=== PATIENT | female | born 1955 | race Caucasian/White ===

== ENCOUNTER 2019-08-17 22:46 | Emergency (ER) | payer OTHER ==
[2019-08-17] MEDS ORDERED: SODIUM CHLORIDE 1,000 ML IV SCH (23:00)
[2019-08-17 23:15] VITALS: TEMP 97.3; BMI 39.0
[2019-08-17 23:19] LABS: BASO % 0.5 % (0-2.0); EOS % 2.2 % (0-4.5); HEMATOCRIT 40.1 % (32.4-45.2); HEMOGLOBIN 13.3 GM/dL (10.7-15.3); LYMPH % 18.9 % (8-40); MCHC 33.1 g/dl (32.0-36.0); MEAN CELL VOLUME 75.5 fl (80-96); MONO % 6.2 % (3.8-10.2); NEUT % 72.2 % (42.8-82.8); PLATELET COUNT 356 K/MM3 (134-434); RBC 5.31 M/mm3 (3.60-5.2); RDW 15.6 % (11.6-15.6)
[2019-08-17 23:26] LABS: INR 0.95 (0.83-1.09); PROTHROMBIN TIME (PATIENT) 11.2 SEC (9.7-13.0)
[2019-08-17 23:29] LABS: ACTIVATED PTT 31.9 SECONDS (25.2-36.5)
[2019-08-17 23:47] LABS: ALBUMIN 3.8 g/dl (3.4-5.0); ALK PHOS 83 U/L (45-117); ANION GAP 8 MMOL/L (8-16); BILIRUBIN,TOTAL 0.3 mg/dL (0.2-1); BLOOD UREA NITROGEN 12.6 mg/dL (7-18); CALCIUM 9.2 mg/dL (8.5-10.1); CHLORIDE 107 mmol/L (98-107); CO2 27 mmol/L (21-32); CREATININE 0.8 mg/dL (0.55-1.3); GLUCOSE,RANDOM 136 mg/dL (74-106); POTASSIUM 3.7 mmol/L (3.5-5.1); SGOT/AST 17 U/L (15-37); SGPT/ALT 19 U/L (13-61); SODIUM 142 mmol/L (136-145); TOT PROT 7.9 g/dl (6.4-8.2)
[2019-08-17] MEDS ORDERED: ALTEPLASE 100 MG VIAL IVPB ONE (23:52)
[2019-08-17] MEDS ORDERED: ALTEPLASE BOLUS IVPUSH ONE (23:52)
[2019-08-17] MEDS ORDERED: ALTEPLASE 100MG 100 MG ONE (23:54)
[2019-08-17 23:58] LABS: CHOLESTEROL 167 mg/dL (50-200); HDL CHOLESTEROL 62 mg/dL (40-60); LDL CHOLESTEROL (ONLY SJRH) 86 mg/dL (5-100); TRIGLYCERIDES 138 mg/dL (0-150)
--- NOTE | 2019-08-18 | PDOC ---
History of Present Illness - General Chief Complaint: CVA/TIA Stated Complaint: FALL tPA Exclusion Checklist 0-3hr - Time Elapsed Date last known well: 08/17/19 Time last known well: 22:00 Elaspsed time: 2 Day(s) and 14 Hour(s) and 50 Minutes - Thrombolytic Therapy Candidate Is the patient eligible for Thrombolytic Therapy?: Yes - Exclusion Criteria 0-3hr SBP greater than 185 or DBP greater than 110mmHg despite tx: No Recent IC/spinal surgery,head trauma or stroke w/in last 3mo: No Hx of previous IC hemorrhage, IC neoplasm, AVM or aneurysm: No Active internal bleeding: No Blding diathesis(low plt ct, inc PTT,INR>1.7 or use of NOAC): No Symptoms suggest subarachnoid hemorrhage: No CT demonstrates multilobar infarct(>1/3 cerebral hemiphere): No Arterial puncture at noncompressible site in previous 7 days: No Blood glucose concentration less than 50mg/dL (2.7mmol/L): No NIH Stroke Scale - Last Known Well Date/Time & Onset Date Last Known Well: 08/18/19 Time Last Known Well: 22:00 - Initial Evaluation Level of consciousness: Alert Ask patient the month and their age: Both incorrect Ask patient to open & close eyes; make fist and let go: Obeys both correctly Best gaze (horizontal eye movement): Normal Visual field testing: No visual field loss Facial paresis (Show teeth/raise eyebrows/close eyes tight): Complete paralysis of one or both sides (Upper and lower face) Motor Function: Left Arm: Normal Motor Function: Right Arm: Some effort against gravity Motor Function: Left Leg: Normal (extends leg 30 degrees for 5 seconds without drift) Motor Function: Right Leg: Some effort against gravity Limb Ataxia: Untestable (Joint fused or limb amputated), explain: Sensory(Use pinprick test arms,legs,trunk,face/side to side): Normal Best language (Describe picture, name items, read sentences): Severe aphasia Dysarthria (read several words): Near unintelligible or unable to speak Extinction and Inattention: Inattention or extinction bilaterally to one of the sensory modalities - Total Score NIH Stroke Scale Score: 14 Past History - Past Medical History Allergies/Adverse Reactions: Allergies Allergy/AdvReac Type Severity Reaction Status Date / Time Penicillins Allergy Verified 08/17/19 23:15 Home Medications: Ambulatory Orders Amlodipine Besylate 5 mg PO DAILY 01/02/15 Cholecalciferol (Vitamin D3) [Vitamin D3] 1,000 unit PO DAILY 01/02/15 Hydrocodone/Acetaminophen [[place] 5-325 Tablet] 1 - 2 tab PO Q6H PRN #60 tablet 01/04/15 Ibuprofen [Motrin -] 800 mg PO Q8H PRN #60 tablet 01/04/15 Anemia: No Asthma: No Cancer: No Cardiac Disorders: No CVA: No COPD: No CHF: No Dementia: No Diabetes: No GI Disorders: No Disorders: No HTN: Yes Hypercholesterolemia: No Liver Disease: No Seizures: No Thyroid Disease: No - Surgical History Abdominal Surgery: No Appendectomy: No Cardiac Surgery: No Cholecystectomy: No Lung Surgery: No Neurologic Surgery: No Orthopedic Surgery: No - Psycho Social/Smoking Cessation Hx Smoking History: Unknown if ever smoked Have you smoked in the past 12 months: No Hx Alcohol Use: No Drug/Substance Use Hx: No Substance Use Type: None Hx Substance Use Treatment: No *Physical Exam - Vital Signs Last Vital Signs Temp Pulse Resp BP Pulse Ox 97.3 F L 92 H 20 171/69 H 97 08/17/19 23:12 08/17/19 23:12 08/17/19 23:12 08/17/19 23:12 08/17/19 23:12 ED Treatment Course - LABORATORY CBC & Chemistry Diagram: 08/17/19 23:10 08/17/19 23:10 - ADDITIONAL ORDERS Additional order review: Laboratory Results 08/17/19 23:10 PT with INR 11.20 INR 0.95 PTT (Actin FS) 31.9 08/17/19 23:10 RBC 5.31 H MCV 75.5 L MCHC 33.1 RDW 15.6 MPV 8.0 Neutrophils % 72.2 Lymphocytes % 18.9 Monocytes % 6.2 Eosinophils % 2.2 Basophils % 0.5 Medical Decision Making - Medical Decision Making 08/18/19 00:07 HPI: 64yo F no PMH BIBA from home R-sided facial droop, R-sided weakness, R sara- extinction, and inability to talk, LKN 2200 per son. Pt appears able to understand speech because follows commands. Pt appears like trying to form words and talk but is unable to do so. Remaining hx per son. Pt was in [facility] prior, no COVID sx, went to bathroom and few minutes later was found on floor in this state by family. ROS: unable to obtain 2/2 dysarthria PE: Gen: Alert, NAD HEENT: PERRL, EOMI, MMM, NCAT. No conjunctival pallor. Sclera are non-icteric. Oropharynx is clear. CV: Regular rate and rhythm. No murmurs, rubs, or gallops. PULM: No resp distress. CTAB, no wheezes, rales, or rhonchi. ABD: soft, NT/ND, no rebound tenderness or guarding, no CVA tenderness. BACK: No TTP of c/t/l-spine. No step-offs or deformities. MSK: No bony deformities. 2+ pulses in all extremities. NEURO: Alert, unable to assess orientation 2/2 dysarthria. PERRL. No abnormal nystagmus. R-sided facial droop. 3/5 strength in RUE and RLE, 5/5 strength in LUE/LLE. With LUE, no dysmetria. When asked to perform dysmetria with RUE, pt uses L hand to grab R hand and pick it up to touch the finger to my finger. Sensation to light touch intact in all extremities. Severe dysarthria present. Possible R-sided sara-extinction; pt's head turned to face left. Pt repeatedly grabs right arm with left hand and seems confused and pulls it to left side. EXTREMITIES: No cyanosis. No clubbing. No edema. No calf tenderness. PSYCH: Tearing up, appears frustrated SKIN: Warm and dry. Normal capillary refill. No rashes. No jaundice. MDM: 64yo F no PMH BIBA from home R-sided facial droop, R-sided weakness, R sara- extinction, and dysarthria, LKN 2200 per son. Hemodynamically stable, afebrile, neuro findings as above. Ddx: high concern for stroke. NIHSS 14. Also consider ICH - r/o with CTH. Also consider infection, metabolic derangement, or anemia. Pt evaluated upon arrival in EMS stretcher - R-sided weakness, facial droop, and dysarthria noted. Code porter activated CTH/CTA brain reviewed: no hemorrhage. Small branching curvilinear hyperdense foci noted on CTH correspond to on CTA noncalcified emboli within several proximal/M2 branches of L MCA. L MCA itself demonstrates no discrete intraluminal defect Labs reviewed. No concerning findings. No improvement in sx. No tPA exclusion criteria. Pt within window. Consent for tPA and transfer obtained by son. Spoke with neuro Dr Copeland - recommends tPA and tx to [facility]. Transfer accepted to [facility]. tPA initiated approx 1min prior to ACLS arrival. ACLS here. Still no improvement in sx. Pt transported with tPA. Discharge - Discharge Information Problems reviewed: Yes Clinical Impression/Diagnosis: CVA (cerebral vascular accident) Condition: Fair Disposition: TRANSFER ACUTE CARE/OTHER HOSP - Admission No - Follow up/Referral Referrals: Felix Gaines, RES [Primary Care Provider] - - Patient Discharge Instructions - Post Discharge Activity - Transfer to Acute Care Facility Receiving Facility Name: [facility]
--- NOTE | 2019-08-18 00:02 | CON.NEURO ---
Consult Consult Specialty:: katie neurology Referred by:: er Reason for Consultation:: cva - History of Present Illness History of Present Illness: 64 years old right handed female patient with sudden onset of confusion and right sided weakness started at 22 hours p.m. patient was found on the bathroom floor with right sided weakness 911 was called patient was brought into [facility] stroke protocol was initiated patient was found with dance right CVA with right arm and leg weakness and excessive expressive aphasia. According to the emergency room there was no improvement. CAT scan of the head was done which revealed no evidence of bleed. [place] angiogram of the head confirm the presence of two left MCA small thrombotic clots. patient and each stroke scale was 11 not improving. patient had no contraindication to t hrombolysis. Patient was not noted to be on a blood thinner. The decision was made to give the patient Tpa. - History Source History Provided By: Medical Record Limitations to Obtaining History: Clinical Condition - Past Medical History Cardio/Vascular: Yes: CAD, HTN - Alcohol/Substance Use Hx Alcohol Use: No - Smoking History Smoking history: Unknown if ever smoked Have you smoked in the past 12 months: No Home Medications - Allergies Allergies/Adverse Reactions: Allergies Allergy/AdvReac Type Severity Reaction Status Date / Time Penicillins Allergy Verified 08/17/19 23:15 - Home Medications Home Medications: Ambulatory Orders Amlodipine Besylate 5 mg PO DAILY 01/02/15 Cholecalciferol (Vitamin D3) [Vitamin D3] 1,000 unit PO DAILY 01/02/15 Hydrocodone/Acetaminophen [[place] 5-325 Tablet] 1 - 2 tab PO Q6H PRN #60 tablet 01/04/15 Ibuprofen [Motrin -] 800 mg PO Q8H PRN #60 tablet 01/04/15 Family Medical History Family History: Unable to Obtain Review of Systems Unable to obtain ROS, reason: ?.. Physical Exam-Neuro Vital Signs: Vital Signs Temperature 97.3 F L 08/17/19 23:12 Pulse Rate 92 H 08/17/19 23:12 Respiratory Rate 20 08/17/19 23:12 Blood Pressure 171/69 H 08/17/19 23:12 O2 Sat by Pulse Oximetry (%) 97 08/17/19 23:12 Constitutional: Yes: Well Nourished Labs: CBC, BMP 08/17/19 23:10 08/17/19 23:10 INR, PTT INR 0.95 (0.83-1.09) 08/17/19 23:10 NIH Stroke Scale - Last Known Well Date/Time & Onset Date Last Known Well: 08/17/19 Time Last Known Well: 22:00 - Initial Evaluation Level of consciousness: Alert Ask patient the month and their age: Answers one correctly Ask patient to open & close eyes; make fist and let go: Obeys one correctly Best gaze (horizontal eye movement): Partial gaze palsy Visual field testing: No visual field loss Facial paresis (Show teeth/raise eyebrows/close eyes tight): Minor paralysis (flattened nasolabial fold, asymmetry on smiling) Motor Function: Left Arm: Normal Motor Function: Right Arm: No effort against gravity Motor Function: Left Leg: Normal (extends leg 30 degrees for 5 seconds without drift) Motor Function: Right Leg: No effort against gravity Limb Ataxia: Present in one limb Sensory(Use pinprick test arms,legs,trunk,face/side to side): Mild to moderate decrease in sensation Best language (Describe picture, name items, read sentences): Severe aphasia Dysarthria (read several words): Mild to moderate slurring of words Extinction and Inattention: Inattention or extinction bilaterally to one of the sensory modalities - Total Score NIH Stroke Scale Score: 16 Imaging - Results Cat Scan: Image Reviewed Problem List - Problems (1) Stroke Code(s): I63.9 - CEREBRAL INFARCTION, UNSPECIFIED Assessment/Plan 64-year-old right handed female patient with history of hypertension with acute left MCA stroke with right hemiparesis with and I each stroke scale of 16. Patient with no contraindication absolute or relative for thrombolysis. The decision was made to give intravenous TPA 1. iv tpa 2. transfer to territary stroke unit 3. if no improvement to start mechanical thromectomy 4. tight bp control target mean abp 115 5. npo 6. iv fluids thanks Marquise Copeland MD Neurolgy
--- NOTE | 2019-08-18 00:14 | PDOC ---
Attending Attestation - Resident Resident Name: BethJuli - ED Attending Attestation I have performed the following: I have examined & evaluated the patient, The case was reviewed & discussed with the resident, I agree w/resident's findings & plan, Exceptions are as noted - HPI HPI: 08/18/19 02:44 See resident HPI - Physicial Exam PE: 08/18/19 02:44 Agree with documented exam - Medical Decision Making 08/18/19 02:44 BIBEMS with focal deficits, R facial droop, RUE/RLE weakness, dysarthria. Was [facility] 30 minutes before presentation Code ramirez activated Imaging consistent with emboli to multiple branches of the L MCA No improvement in symptoms, Neurology consulted tPA initial dose given over 1 minute, transferred to [facility] with tPA infusion on going Discharge - Discharge Information Problems reviewed: Yes Clinical Impression/Diagnosis: CVA (cerebral vascular accident) Condition: Fair Disposition: TRANSFER ACUTE CARE/OTHER HOSP - Follow up/Referral Referrals: Felix Gaines, RES [Primary Care Provider] - - Patient Discharge Instructions - Post Discharge Activity
[2019-08-18 00:24] LABS: URINE APPEARANCE CLEAR; URINE BILIRUBIN NEGATIVE (NEGATIVE); URINE COLOR YELLOW; URINE GLUCOSE (UA) NEGATIVE (NEGATIVE); URINE KETONE NEGATIVE (NEGATIVE); URINE LEUK ESTERASE NEGATIVE (NEGATIVE); URINE NITRITE NEGATIVE (NEGATIVE); URINE PROTEIN NEGATIVE (NEGATIVE); URINE UROBILINOGEN 0.2 mg/dL (0.2-1.0)
[2019-08-18 00:33] VITALS: BP 177/74; PULSE 93
--- NOTE | 2019-08-18 14:33 | EKG ---
Test Reason : Blood Pressure : / mmHG Vent. Rate : 093 BPM Atrial Rate : 093 BPM P-R Int : 140 ms QRS Dur : 068 ms QT Int : 366 ms P-R-T Axes : 056 013 046 degrees QTc Int : 455 ms POOR DATA QUALITY, INTERPRETATION MAY BE ADVERSELY AFFECTED NORMAL SINUS RHYTHM POSSIBLE LEFT ATRIAL ENLARGEMENT ANTEROSEPTAL INFARCT , AGE UNDETERMINED ABNORMAL ECG NO PREVIOUS ECGS AVAILABLE Confirmed by SHIRA GATICA MD ([id number]) on 08/18/2019 2:33:02 PM Referred By: Confirmed By:SHIRA GATICA MD
== END 2019-08-18 00:42 | disposition short-term general hospital (02) ==
LOC: JER 22:46
PROC: 3E033GC Introduction of Other Therapeutic Substance into Peripheral Vein, Percutaneous Approach (ICD-10-PCS; principal; 2019-08-17)
DX: I63.9 Cerebral infarction, unspecified (principal)
CPT/HCPCS: 36415; 70450-TC; 70496-TC; 80053; 80061; 81003; 82550; 83721; 84484; 85025; 85610; 85730; 86850; 86900; 86901; 93005; 93010; 96374; 99285-25; J2997; Q9967

== ENCOUNTER 2019-10-28 07:29 | Observation (INO) | payer OTHER ==
--- NOTE | 2019-10-28 07:56 | PDOC ---
History of Present Illness - General Chief Complaint: Lightheaded Stated Complaint: DIZZINESS/RULE OUT STROKE Time Seen by Provider: 10/28/19 07:56 History Source: Patient Exam Limitations: No Limitations - History of Present Illness Initial Comments: 10/28/19 07:57 64yF w PMHx CVA (proximal/M2 branches of L MCA) presenting w dizziness, nausea, mild L sided headache, and episode of unresponsiveness. Sudden onset dizziness (room spinning), nausea, mild L sided headache when pt stood up from chair to walk to bathroom at 7pm last night. Didn't take any meds for symptoms, only propped up legs on bed. Son also noted few second episode of unresponsiveness this morning that self resolved. Pt now at neuro baseline, AOx3, conversational, persistent R sided numbness and mild dysarthric speech. Had proximal/M2 branches of L MCA CVA on 08/17/19, given tPA, transferred to [facility], managed without surgery. Denies fever, cough, vomiting, chest/ABD pain, SOB, urinary/bowel mvmt changes, extremity weakness. Neurologist Reyes Vela Past History - Medical History Allergies/Adverse Reactions: Allergies Allergy/AdvReac Type Severity Reaction Status Date / Time Penicillins Allergy Verified 10/28/19 07:45 Home Medications: Ambulatory Orders Amlodipine Besylate 5 mg PO DAILY 01/02/15 Cholecalciferol (Vitamin D3) [Vitamin D3] 1,000 unit PO DAILY 01/02/15 Hydrocodone/Acetaminophen [[place] 5-325 Tablet] 1 - 2 tab PO Q6H PRN #60 tablet 01/04/15 Ibuprofen [Motrin -] 800 mg PO Q8H PRN #60 tablet 01/04/15 Famotidine [Pepcid -] 20 mg PO DAILY 10/28/19 Rosuvastatin [Crestor -] 5 mg PO HS 10/28/19 Anemia: No Asthma: No Cancer: No Cardiac Disorders: No CVA: Yes COPD: No CHF: No Dementia: No Diabetes: No GI Disorders: No Disorders: No HTN: Yes Hypercholesterolemia: No Liver Disease: No Seizures: No Thyroid Disease: No - Surgical History Abdominal Surgery: No Appendectomy: No Cardiac Surgery: No Cholecystectomy: No Lung Surgery: No Neurologic Surgery: No Orthopedic Surgery: No - Psycho-Social/Smoking History Smoking History: Never smoked Have you smoked in the past 12 months: No - Substance Abuse Hx (Audit-C & DAST Scrn) How often the patient has a drink containing alcohol: Never Score: In Men: 4 or > Positive; In Women: 3 or > Positive: 0 Screen Result (Pos requires Nsg. Audit-10AR): Negative Review of Systems - Review of Systems Constitutional: No: Chills, Fever HEENTM: No: Eye Pain, Recent change in vision, Nose Congestion Respiratory: No: Cough, Shortness of Breath Cardiac (ROS): No: Chest Pain, Palpitations ABD/GI: Yes: Nausea. No: Constipated, Diarrhea, Vomiting : No: Burning, Dysuria Musculoskeletal: No: Back Pain, Joint Pain Integumentary: No: Bruising, Flushing Neurological: Yes: Headache. No: Seizure Psychiatric: No: Anxiety, Depression Endocrine: No: Intolerance to Cold, Intolerance to Heat Hematologic/Lymphatic: No: Anemia, Blood Clots *Physical Exam - Vital Signs Last Vital Signs Temp Pulse Resp BP Pulse Ox 97.8 F 52 L 16 157/85 98 10/28/19 07:33 10/28/19 07:33 10/28/19 07:33 10/28/19 07:33 10/28/19 07:33 - Physical Exam General Appearance: Yes: Nourished, Appropriately Dressed, Mild Distress HEENT: positive: EOMI (horizontal nystagmus), CAT, Hearing Grossly Normal. negative: Normal Voice (mild dysarthric speech), Scleral Icterus (R), Scleral Icterus (L) Respiratory/Chest: positive: Lungs Clear, Normal Breath Sounds. negative: Chest Tender, Respiratory Distress, Crackles, Rales, Rhonchi, Stridor, Wheezing Cardiovascular: positive: Regular Rhythm, S1, S2, Bradycardia, Systolic Murmur. negative: Edema Gastrointestinal/Abdominal: positive: Normal Bowel Sounds, Flat, Soft. negative: Tender, Organomegaly Integumentary: positive: Normal Color, Warm Neurologic: positive: gym manager II-XII NML intact, Fully Oriented, Alert, Normal Mood/Affect, Normal Response, Motor Strength 5/5, Responsive, Numbness (R arm/leg reduced sensation), Finger to Nose (normal alternating hands, finger- nose, heel-graham). negative: Confused, Disoriented ED Treatment Course - LABORATORY CBC & Chemistry Diagram: 10/28/19 08:35 10/28/19 08:35 Medical Decision Making - Medical Decision Making 10/28/19 08:[address] - no acute bleed/infarct/mass EKG - sinus bradycardia, HR 49, QTc 410, no ST changes, unchanged vs 08/16 --- 64yF w PMHx CVA (proximal/M2 branches of L MCA) presenting w suddent onset dizziness, nausea, mild L sided headache starting 7p last night, and few second episode of unresponsiveness this morning Likely peripheral vertigo (sudden onset, positional, associated nausea, normal cerebellar tests) and TIA. Low concern for CVA (no new focal neuro deficits, back to baseline) vs ACS (neg trop) vs anemia (Hgb wnl) Given 1L NS, meclizine, tylenol, zofran Consulted Dr Vela neuro - manager education Adeline agrees with plan to admit, will evaluate Admitted tele/obvs for peripheral vertigo, TIA Discharge - Discharge Information Problems reviewed: Yes Clinical Impression/Diagnosis: TIA (transient ischemic attack) Peripheral vertigo Qualifiers: Laterality: unspecified laterality Qualified Code(s): H81.399 - Other peripheral vertigo, unspecified ear Condition: Good - Follow up/Referral - Patient Discharge Instructions - Post Discharge Activity
--- NOTE | 2019-10-28 08:08 | PDOC ---
Attending Attestation - Resident Resident Name: Nader Puente - HPI HPI: 10/28/19 09:41 Pt presents to the ED complaining of dizziness that started last night. Describes the dizziness as room spinning rather than lightheadness. Denies chest pain, shortness of breath. Son reports that the patient had a brief episode of word finding difficulty that lasted minutes and spontaneously resolved yesterday. Now is complaining of mild dizziness, but is otherwise asymptomatic. - Physicial Exam PE: 10/28/19 09:50 Agree with resident exam. Patient is alert and in no acute distress. CV: bradycardic, regular, no murmurs. Pulm: CTA b/l. Neuro: alert and oriented x 3, CN 2-12 grossly intact, speech fluent and clear. - Medical Decision Making 10/28/19 09:52 Pt presents to the ED complaining of lightheadness and ?brief aphasia. EKG shows sinus bradycardia with rate in the 40s-50s. Differential includes sinus node disease, ACS, electrolyte disturbance, TIA, less likely intracranial mass or bleed. Will check labs and CT head, admit to medicine for continued work up. Discharge - Discharge Information Problems reviewed: Yes Clinical Impression/Diagnosis: TIA (transient ischemic attack) Peripheral vertigo Qualifiers: Laterality: unspecified laterality Qualified Code(s): H81.399 - Other peripheral vertigo, unspecified ear Condition: Good Disposition: HOME - Follow up/Referral - Patient Discharge Instructions - Post Discharge Activity
[2019-10-28] MEDS ORDERED: SODIUM CHLORIDE 0.9% 500 ML INFUS.BAG IV ONE (08:22)
[2019-10-28] MEDS ORDERED: MECLIZINE HCL 25 MG TABLET (FP) PO ONE (08:22)
[2019-10-28] MEDS ORDERED: ONDANSETRON 4 MG/2 ML VIAL IVPUSH ONE (08:30)
[2019-10-28] MEDS ORDERED: ACETAMINOPHEN 1000 MG/100 ML VIAL (NON FORMULARY) IVPB ONE (08:32)
[2019-10-28] MEDS ORDERED: ACETAMINOPHEN INJECTION 100 ML IVPB ONE (08:38)
[2019-10-28] MEDS ORDERED: MECLIZINE HCL 25 MG TABLET (FP) ONE (08:38)
[2019-10-28 09:18] LABS: BASO % 0.5 % (0-2.0); EOS % 2.2 % (0-4.5); HEMATOCRIT 37.6 % (32.4-45.2); HEMOGLOBIN 12.5 GM/dL (10.7-15.3); LYMPH % 20.4 % (8-40); MCHC 33.2 g/dl (32.0-36.0); MEAN CELL VOLUME 75.3 fl (80-96); MEAN PLT VOLUME 8.8 fl (7.5-11.1); NEUT % 70.9 % (42.8-82.8); PLATELET COUNT 287 K/MM3 (134-434); RBC 4.99 M/mm3 (3.60-5.2); RDW 15.8 % (11.6-15.6)
[2019-10-28 09:50] LABS: ALBUMIN 3.4 g/dl (3.4-5.0); ALK PHOS 75 U/L (45-117); ANION GAP 10 MMOL/L (8-16); BILIRUBIN,TOTAL 0.6 mg/dL (0.2-1); CALCIUM 8.9 mg/dL (8.5-10.1); CHLORIDE 112 mmol/L (98-107); CHOLESTEROL 122 mg/dL (50-200); CO2 24 mmol/L (21-32); CREATININE 0.6 mg/dL (0.55-1.3); GLUCOSE,RANDOM 100 mg/dL (74-106); HDL CHOLESTEROL 45 mg/dL (40-60); LDL CHOLESTEROL (ONLY SJRH) 63 mg/dL (5-100); SGOT/AST 20 U/L (15-37); SGPT/ALT 24 U/L (13-61); SODIUM 145 mmol/L (136-145); TOT PROT 7.3 g/dl (6.4-8.2); TRIGLYCERIDES 92 mg/dL (0-150)
--- NOTE | 2019-10-28 10:46 | EKG ---
Test Reason : Blood Pressure : / mmHG Vent. Rate : 049 BPM Atrial Rate : 049 BPM P-R Int : 144 ms QRS Dur : 074 ms QT Int : 454 ms P-R-T Axes : 022 -10 031 degrees QTc Int : 410 ms SINUS BRADYCARDIA POSSIBLE ANTERIOR INFARCT (CITED ON OR BEFORE 17-AUG-2019) ABNORMAL ECG WHEN COMPARED WITH ECG OF 17-AUG-2019 23:03, VENT. RATE HAS DECREASED BY 44 BPM QUESTIONABLE CHANGE IN INITIAL FORCES OF SEPTAL LEADS Confirmed by Natasha Orta ([id number]) on 10/28/2019 10:46:22 AM Referred By: Confirmed By:Natasha Orta
--- NOTE | 2019-10-28 12:02 | HP ---
CHIEF COMPLAINT: Vertigo PCP: Dr. Evans HISTORY OF PRESENT ILLNESS: 64yo R-handed F with h/o CAD, HTN, and prior CVA (07/2019) without residual post TPA who presented today with a few minutes of vertigo. Patient was originally accompanied by her family member who reported she was reported unresponsive for several seconds. She regained sensorium and developed nausea without vomiting. Patient noted to have L-sided unilateral frontal headache which lasted for a few seconds. Overall patient is asymptomatic at time of exam. She denotes some generalized weakness, but denies any fever/chills, SOB, CP, palpitations, vertigo, numbness, motor difficulties, dyarthria, abdominal pain, dysuria, polyuria. PAST MEDICAL HISTORY: As above PAST SURGICAL HISTORY: None FamHx: CAD, TIA in parents Social History: Smoking: Denies Alcohol: Denies Drugs: Denies Allergies Penicillins Allergy (Verified 10/28/19 07:45) HOME MEDICATIONS: Home Medications Medication Instructions Recorded Amlodipine Besylate 5 mg PO DAILY 01/02/15 Cholecalciferol (Vitamin D3) 1,000 unit PO DAILY 01/02/15 [Vitamin D3] Hydrocodone/Acetaminophen [[place] 1 - 2 tab PO Q6H PRN #60 tablet 01/04/15 5-325 Tablet] Ibuprofen [Motrin -] 800 mg PO Q8H PRN #60 tablet 01/04/15 Famotidine [Pepcid -] 20 mg PO DAILY 10/28/19 Rosuvastatin [Crestor -] 5 mg PO HS 10/28/19 REVIEW OF SYSTEMS As per HPI PHYSICAL EXAMINATION Vital Signs - 24 hr 10/28/19 10/28/19 10/28/19 07:33 09:09 11:51 Temperature 97.8 F Pulse Rate 52 L Pulse Rate [ 52 L 49 L Left Radial] Respiratory 16 24 H 23 H Rate Blood Pressure 157/85 Blood Pressure 141/61 153/63 [Left Arm] O2 Sat by Pulse 98 100 98 Oximetry (%) GENERAL: Awake, alert, and fully oriented, in no acute distress. HEENT: NC/AT, EOMI with horizontal nystagmus noted R wingbeat, MMM, BAO. NECK: No carotid bruits LUNGS: CTA bilaterally. No wheezes, and no crackles. No accessory muscle use. HEART: RRR, normal S1 and S2 without murmur ABDOMEN: Soft, NT/ND, normoactive bowel sounds, no guarding EXTREMITIES: 2+ pulses, warm, well-perfused. No calf tenderness. No peripheral edema. 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 Strength symmetrical throughout, sensation intact throughout, no dysmetria, no dysdiadocokinesia, no dysarthria, gait not observed. patellar reflex 2/4. PSYCHIATRIC: Cooperative. Appropriate mood and affect. SKIN: Warm, dry,no rashes or lesions noted Laboratory Results - last 24 hr 10/28/19 10/28/19 08:35 08:35 WBC 7.0 RBC 4.99 Hgb 12.5 Hct 37.6 MCV 75.3 L MCH 25.0 L MCHC 33.2 RDW 15.8 H Plt Count 287 MPV 8.8 Absolute Neuts (auto) 5.0 Neutrophils % 70.9 Lymphocytes % 20.4 Monocytes % 6.0 Eosinophils % 2.2 Basophils % 0.5 Nucleated RBC % 0 Sodium 145 Potassium 4.0 Chloride 112 H Carbon Dioxide 24 Anion Gap 10 BUN 6.0 L Creatinine 0.6 Est GFR (CKD-EPI)AfAm 110.86 Est GFR (CKD-EPI)NonAf 95.65 Random Glucose 100 Calcium 8.9 Total Bilirubin 0.6 AST 20 ALT 24 Alkaline Phosphatase 75 Creatine Kinase 59 Troponin I < 0.02 Total Protein 7.3 Albumin 3.4 Triglycerides 92 Cholesterol 122 Total LDL Cholesterol 63 HDL Cholesterol 45 ASSESSMENT/PLAN: New onset Vertigo Suspected complex migraine syndrome R/O CVA Sinus Bradycardia History of HTN History Hyperlipidemia --Will obtain medication changes from prior transfer (unusual low dosing of statin and no ASA in prior CVA use) --Vertiginous symptoms might be related to complex migraine --CT Head negative --Possible MRI --Neurology on board --Continue home dose statin for now and uptitrate as tolerated --Meclizine and Zofran PRN --Sinus bradycardia without clear etiology --Telemetry monitoring --Medication reconciliation to be done --No evidence of carotid sinus hyperstimulation --ECG reviewed without significant changes --TSH add-on Diet: Low sodium/fat Fluids: None PPX: Heparin BID SQ Dispo: Telemetry observation Roland Astudillo, DO - IM Visit type - Medication Review Med list reviewed for High Risk Meds patients 65 and older: Yes - Emergency Visit Emergency Visit: Yes ED Registration Date: 10/28/19 Care time: The patient presented to the Emergency Department on the above date and was hospitalized for further evaluation of their emergent condition. - New Patient This patient is new to me today: Yes Date on this admission: 10/28/19 - Critical Care Critical Care patient: No
[2019-10-28] MEDS ORDERED: MECLIZINE HCL 12.5 MG TABLET PO PRN (12:05)
--- NOTE | 2019-10-28 18:44 | CON.NEURO ---
Consult - Past Medical History Cardio/Vascular: Yes: CAD, HTN - Alcohol/Substance Use Hx Alcohol Use: No - Smoking History Smoking history: Never smoked Have you smoked in the past 12 months: No Home Medications - Allergies Allergies/Adverse Reactions: Allergies Allergy/AdvReac Type Severity Reaction Status Date / Time Penicillins Allergy Verified 10/28/19 07:45 - Home Medications Home Medications: Ambulatory Orders Amlodipine Besylate 5 mg PO DAILY 01/02/15 Cholecalciferol (Vitamin D3) [Vitamin D3] 1,000 unit PO DAILY 01/02/15 Hydrocodone/Acetaminophen [[place] 5-325 Tablet] 1 - 2 tab PO Q6H PRN #60 tablet 01/04/15 Ibuprofen [Motrin -] 800 mg PO Q8H PRN #60 tablet 01/04/15 Famotidine [Pepcid -] 20 mg PO DAILY 10/28/19 Rosuvastatin [Crestor -] 5 mg PO HS 10/28/19 Physical Exam-Neuro Vital Signs: Vital Signs Temperature 97.8 F 10/28/19 15:49 Pulse Rate 84 10/28/19 15:49 Respiratory Rate 17 10/28/19 15:49 Blood Pressure 151/93 10/28/19 15:49 O2 Sat by Pulse Oximetry (%) 100 10/28/19 15:49 Labs: CBC, BMP 10/28/19 08:35 10/28/19 08:35 Assessment/Plan cc Vertigo and brief LOC ( Syncopal episode ) HPI 64 year old female , righ thanded, history of CAD, HTN, Stroke ( july 2019) She was given tpa at [facility] and was trasnferred for thrombectomy at [facility]. Patient has recovered and continue to have speech difficulty and righ tsided numbness. Patient came with feeling dizzy an dhas brief episode of loc. patient regained sensorium and feeling back to normal. Patinet describes as vertigo sensation and spinning all around. No other focal neurological symptoms, PAST MEDICAL HISTORY: As above Allergies Penicillins Allergy (Verified 10/28/19 07:45) HOME MEDICATIONS: Home Medications Medication Instructions Recorded Amlodipine Besylate 5 mg PO DAILY 01/02/15 Cholecalciferol (Vitamin D3) 1,000 unit PO DAILY 01/02/15 [Vitamin D3] Hydrocodone/Acetaminophen [[place] 1 - 2 tab PO Q6H PRN #60 tablet 10/16/15 5-325 Tablet] Ibuprofen [Motrin -] 800 mg PO Q8H PRN #60 tablet 01/04/15 Famotidine [Pepcid -] 20 mg PO DAILY 10/28/19 Rosuvastatin [Crestor -] 5 mg PO HS 10/28/19 ROS,FH,SH reviewed in chart NEUROLOGICAL EXAMINATION Alert oriented x 2, speech is dysarthric mild nystagmus on left gaze, eomi, pupils reactive moving all ext mild right arm and leg weakness ct head no acute findings Assessment/Plan 64 year old female , righ thanded, history of CAD, HTN, Stroke ( july 2019) came with syncopal episode and vertigo sensation. - Syncopal episode etiology unclear - vertigo , likley to be BPPV , Meclizine prn and mri for possible brain stem stroke Plan - mri of brain - pt add apsirin -carotid ultrasound Thanking you so much Constantino Lr MD
[2019-10-28] MEDS ORDERED: ASPIRIN 81 MG CHEWABLE TABLETS ONE (19:50)
[2019-10-28] MEDS: ASPIRIN COATED 81 MG TABLET.EC PO SCH (19:51)
[2019-10-28] MEDS ORDERED: ROSUVASTATIN CA 10 MG TABLET (FP) PO SCH (22:00)
[2019-10-28 23:43] VITALS: BMI 26.4
[2019-10-29] MEDS: FAMOTIDINE 20 MG TABLET PO SCH (09:40)
[2019-10-29] MEDS: ASPIRIN COATED 81 MG TABLET.EC PO SCH (09:40)
[2019-10-29] MEDS ORDERED: amLODIPine BESYLATE 5 MG TABLET (FP) PO SCH (10:00)
--- NOTE | 2019-10-29 13:43 | PN ---
Progress Note (short form) - Note Progress Note: Events noted Pt has expressive aphasia, speaks limited [place] Yi translated using an limb driver Has dizziness when moving her head left to right no tinnitus no weakness Dizziness slightly better today spoke with [employer]- pt had a monitor placed for 4 weeks with Cardiology from [facility]-- results not available Vital Signs - 24 hr 10/28/19 10/28/19 10/28/19 15:49 19:45 21:45 Temperature 97.8 F 98.7 F 98.1 F Pulse Rate 54 L Pulse Rate [ 84 49 L Left Radial] Respiratory 17 15 17 Rate Blood Pressure 153/61 Blood Pressure 151/93 139/58 L [Left Arm] O2 Sat by Pulse 100 98 99 Oximetry (%) 10/29/19 10/29/19 03:00 06:00 Temperature 97.3 F L 98.4 F Pulse Rate 51 L 53 L Pulse Rate [ Left Radial] Respiratory 18 18 Rate Blood Pressure 100/43 L 105/50 L Blood Pressure [Left Arm] O2 Sat by Pulse 97 97 Oximetry (%) Current Medications Generic Name Dose Route Start Last Admin Trade Name Freq PRN Reason Stop Dose Admin Amlodipine Besylate 5 mg 10/29/19 10:00 10/29/19 09:40 Norvasc - PO 5 mg DAILY MILADY Administration Aspirin 81 mg 10/28/19 18:45 10/29/19 09:40 Ecotrin - PO 81 mg DAILY MILADY Administration Famotidine 20 mg 10/29/19 10:00 10/29/19 09:40 Pepcid - PO 20 mg DAILY MILADY Administration Meclizine HCl 12.5 mg 10/28/19 12:05 Antivert - PO Q6H PRN VERTIGO Rosuvastatin Calcium 10 mg 10/28/19 22:00 10/28/19 21:59 Crestor - PO 10 mg HS MILADY Administration Laboratory Results - last 24 hr 10/28/19 10/28/19 08:35 08:35 Sodium 145 Potassium 4.0 Chloride 112 H Carbon Dioxide 24 Anion Gap 10 BUN 6.0 L Creatinine 0.6 Est GFR (CKD-EPI)AfAm 110.86 Est GFR (CKD-EPI)NonAf 95.65 Random Glucose 100 Calcium 8.9 Total Bilirubin 0.6 AST 20 ALT 24 Alkaline Phosphatase 75 Creatine Kinase 59 Troponin I < 0.02 Total Protein 7.3 Albumin 3.4 Triglycerides 92 Cholesterol 122 Total LDL Cholesterol 63 HDL Cholesterol 45 TSH 3.21 COVID-19 (MOOSE) Not detected S1 S2 RRR Lungs clear Abd- soft, NT no edema Strength equal in both upper and lower extremities 5/5 A/P h.o CVA, s/p thrombectomy, TPa dizziness vertigo bradycardia ? parox Afib -- med list noted-- change statins to Lipitor, add plavix -- pt was on Nadolol-- will hold off for now due to bradycardia -- will need to speak with DR Evans-- PMD tomorrow about the monitor results -- MRI brain noted-->several small infarcts - acute/subacute -- carotid doppler negative -- Echo ordered for tomorrow -- check orthostasis -- Problem List - Problems (1) Paroxysmal A-fib Code(s): I48.0 - PAROXYSMAL ATRIAL FIBRILLATION (2) Peripheral vertigo Code(s): H81.399 - OTHER PERIPHERAL VERTIGO, UNSPECIFIED EAR Qualifiers: Laterality: unspecified laterality Qualified Code(s): H81.399 - Other peripheral vertigo, unspecified ear (3) TIA (transient ischemic attack) Code(s): G45.9 - TRANSIENT CEREBRAL ISCHEMIC ATTACK, UNSPECIFIED (4) Stroke Code(s): I63.9 - CEREBRAL INFARCTION, UNSPECIFIED
[2019-10-29] MEDS: CLOPIDOGREL BISULFATE 75 MG TABLET (FP) PO SCH (15:18)
--- NOTE | 2019-10-29 15:42 | CON.CARD ---
Consult Consult Specialty:: cardiology Reason for Consultation:: vertigo; hx CVA - History of Present Illness Chief Complaint: Pt A&Ox3; no chest pain, headache, dizziness, dyspnea. History of Present Illness: Ms. Glover is a 64yF (b. [facility]) w PMHx CVA (proximal/M2 branches of L MCA about 3 months ago; residual loss of right-side sensation, problems finding words) presenting w dizziness, nausea, mild L sided headache, and episode of unresponsiveness. Sudden onset dizziness (room spinning), nausea, mild L sided headache when pt stood up from chair to walk to bathroom at 7pm last night. Didn't take any meds for symptoms, only propped up legs on bed. Son also noted few-second episode of unresponsiveness this morning that self-resolved. Pt now at neuro baseline, AOx3, conversational, persistent R sided numbness and mild dysarthric speech. Had proximal/M2 branches of L MCA CVA on 08/17/19, given tPA, transferred to [facility], managed without surgery. Denies fever, cough, vomiting, chest/ABD pain, SOB, urinary/bowel mvmt changes, extremity weakness. Neurologist - Dr. 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 Cardio/Vascular: Yes: CAD, HTN Reproductive: Yes: Postmenopausal ...: No - Alcohol/Substance Use Hx Alcohol Use: No - Smoking History Smoking history: Never smoked Have you smoked in the past 12 months: No Home Medications - Allergies Allergies/Adverse Reactions: Allergies Allergy/AdvReac Type Severity Reaction Status Date / Time Penicillins Allergy Verified 10/28/19 07:45 - Home Medications Home Medications: Ambulatory Orders Amlodipine Besylate 5 mg PO DAILY 01/02/15 Cholecalciferol (Vitamin D3) [Vitamin D3] 1,000 unit PO DAILY 01/02/15 Hydrocodone/Acetaminophen [[place] 5-325 Tablet] 1 - 2 tab PO Q6H PRN #60 tablet 01/04/15 Ibuprofen [Motrin -] 800 mg PO Q8H PRN #60 tablet 01/04/15 Famotidine [Pepcid -] 20 mg PO DAILY 10/28/19 Rosuvastatin [Crestor -] 5 mg PO HS 10/28/19 Review of Systems - Review of Systems Constitutional: reports: Weakness Eyes: reports: No Symptoms HENT: reports: No Symptoms Neck: reports: No Symptoms Cardiovascular: reports: No Symptoms Respiratory: reports: No Symptoms Gastrointestinal: reports: No Symptoms Genitourinary: reports: No Symptoms Breasts: reports: No Symptoms Reported Musculoskeletal: reports: Muscle Weakness Integumentary: reports: No Symptoms Neurological: reports: Headache, Pre-Existing Deficit Endocrine: reports: No Symptoms Hematology/Lymphatic: reports: No Symptoms Psychiatric: reports: No Symptoms - Risk Factors Known Risk Factors: Yes: Age, Hypertension, Prior OH /Emb Stroke Vital Signs: Vital Signs Temperature 97.9 F 10/29/19 13:57 Pulse Rate 64 10/29/19 13:57 Respiratory Rate 20 10/29/19 13:57 Blood Pressure 125/52 L 10/29/19 13:57 O2 Sat by Pulse Oximetry (%) 98 10/29/19 13:57 Constitutional: Yes: Calm Eyes: Yes: WNL HENT: Yes: WNL Neck: Yes: WNL Respiratory: Yes: Regular Gastrointestinal: Yes: Soft Renal/: No: Anuria Cardiovascular: Yes: Regular Rate and Rhythm JVD: No Carotid Bruit: No PMI: Non-Displaced Heart Sounds: Yes: S1, S2 Murmur: Yes: Systolic Murmur, Grade 2 Musculoskeletal: Yes: Muscle Weakness Extremities: Yes: Cool Edema: No Peripheral Pulses WNL: Yes Integumentary: Yes: WNL Neurological: Yes: Alert, Oriented, Weakness Psychiatric: Yes: WNL - Other Data Labs, Other Data: CBC, BMP 10/28/19 08:35 10/28/19 08:35 Troponin, BNP 10/28/19 08:35 Troponin I < 0.02 Troponin, BNP 10/28/19 08:35 Troponin I < 0.02 Echo: Pending Imaging - Results Chest X-ray: Image Reviewed EKG: Image Reviewed Assessment/Plan Vertigo Hx CVA; left chronic infarct; multiple small infarcts noted on MRI HTN HLD Sinus bradycardia s/p 4 week loop recorder to r/o AF, per sons (by phone/video); she was to see maintenance equipment operator (?Dr. Humphries) tomorrow to discuss results. Plan: TNI < 0.02 EKG and telemetry TSH WNL Bradycardia: contributing factor is that she is on nadolol. Consider holding this unless deemed necessary for other reasons, and use ACEI or amlodipine for BP. ECHO for LVEF, wall motion, valve status, chamber sizes. Serial BP checks. HGBA1c (no hx DM; borderline high glucose). Lipids well-controlled (on rosuvastatin). Exercise: pt has been doing home exercises, including walking, without chest pain or dyspnea. Neuro f/u F/u prior cardiac workup; plan on stress test if not done recently (multiple CAD risks). F/u Loop recorder results to r/o AF as factor in cerebral infarcts; f/u ECHO results.
--- NOTE | 2019-10-29 19:58 | PN ---
Progress Note (short form) - Note Progress Note: 64 year old female , righ thanded, history of CAD, HTN, Stroke ( july 2019) She was given tpa at [facility] and was trasnferred for thrombectomy at [facility]. Patient has recovered and continue to have speech difficulty and righ tsided numbness. Patient came with feeling dizzy an dhas brief episode of loc. patient regained sensorium and feeling back to normal. Patient is feeling better and she is backto normal self No other focal neurological symptoms, NEUROLOGICAL EXAMINATION Alert oriented x 2, speech is dysarthric and aphasic nystagmus is better pupils reactive moving all ext mild right arm and leg weakness ct head no acute findings mri of brain showed subacute on chronic infarct Assessment/Plan 64 year old female , righ thanded, history of CAD, HTN, Stroke ( july 2019) came with syncopal episode and vertigo sensation. - Syncopal episode etiology unclear - vertigo , likley to be BPPV , Meclizine prn and mri for possible brain stem stroke mri findndings seems to be resolving old stroke Plan - pt - continue plavix for now -carotid ultrasound and mri ofbrain findings reviewed - her symptoms are resolved Thanking you so much Constantino Lr MD
[2019-10-29] MEDS: ATORVASTATIN CA 40 MG TABLET (FP) PO SCH (21:19)
[2019-10-29] MEDS: ACETAMINOPHEN 325 MG TABLET (FP) PO PRN (21:19)
--- NOTE | 2019-10-30 08:18 | PN ---
Progress Note, Physician History of Present Illness: Ms. Glover is a 64yF (b. [facility]) w PMHx CVA (proximal/M2 branches of L MCA about 3 months ago; residual loss of right-side sensation, problems finding words) presenting w dizziness, nausea, mild L sided headache, and episode of unresponsiveness. Sudden onset dizziness (room spinning), nausea, mild L sided headache when pt stood up from chair to walk to bathroom at 7pm last night. Didn't take any meds for symptoms, only propped up legs on bed. Son also noted few-second episode of unresponsiveness this morning that self-resolved. Pt now at neuro baseline, AOx3, conversational, persistent R sided numbness and mild dysarthric speech. Had proximal/M2 branches of L MCA CVA on 08/17/19, given tPA, transferred to [facility], managed without surgery. Denies fever, cough, vomiting, chest/ABD pain, SOB, urinary/bowel mvmt changes, extremity weakness. - Current Medication List Current Medications: Active Medications Acetaminophen (Tylenol -) 650 mg PO Q6H PRN PRN Reason: PAIN LEVEL 1-5 Last Admin: 10/29/19 21:19 Dose: 650 mg Documented by: Aspirin (Ecotrin -) 81 mg PO DAILY [facility] Last Admin: 10/29/19 09:40 Dose: 81 mg Documented by: Atorvastatin Calcium (Lipitor -) 40 mg PO HS [facility] Last Admin: 10/29/19 21:19 Dose: 40 mg Documented by: Clopidogrel Bisulfate (Plavix -) 75 mg PO DAILY [facility] Last Admin: 10/29/19 15:18 Dose: 75 mg Documented by: Famotidine (Pepcid -) 20 mg PO DAILY [facility] Last Admin: 10/29/19 09:40 Dose: 20 mg Documented by: Meclizine HCl (Antivert -) 12.5 mg PO Q6H PRN PRN Reason: VERTIGO Nadolol ([place] -) 40 mg PO DAILY [facility] - Objective Vital Signs: Vital Signs Temperature 97.5 F L 10/30/19 06:00 Pulse Rate 54 L 10/30/19 06:00 Respiratory Rate 18 10/30/19 06:00 Blood Pressure 110/48 L 10/30/19 06:00 O2 Sat by Pulse Oximetry (%) 96 10/30/19 06:00 Eyes: Yes: WNL, Conjunctiva Clear, EOM Intact HENT: Yes: WNL, Atraumatic, Normocephalic Neck: Yes: WNL, Supple, Trachea Midline Cardiovascular: Yes: WNL, Regular Rate and Rhythm Respiratory: Yes: WNL, Regular, CTA Bilaterally Gastrointestinal: Yes: WNL, Normal Bowel Sounds Genitourinary: Yes: WNL Musculoskeletal: Yes: WNL Extremities: Yes: WNL Edema: No Integumentary: Yes: WNL Labs: CBC, BMP 10/28/19 08:35 10/28/19 08:35 Problem List - Problems (1) Paroxysmal A-fib Code(s): I48.0 - PAROXYSMAL ATRIAL FIBRILLATION (2) Peripheral vertigo Code(s): H81.399 - OTHER PERIPHERAL VERTIGO, UNSPECIFIED EAR Qualifiers: Laterality: unspecified laterality Qualified Code(s): H81.399 - Other peripheral vertigo, unspecified ear (3) TIA (transient ischemic attack) Code(s): G45.9 - TRANSIENT CEREBRAL ISCHEMIC ATTACK, UNSPECIFIED (4) Stroke Code(s): I63.9 - CEREBRAL INFARCTION, UNSPECIFIED Assessment/Plan Vertigo Hx CVA; left chronic infarct; multiple small infarcts noted on MRI HTN HLD Sinus bradycardia s/p 4 week loop recorder to r/o AF, per son; she was to see lawn care specialist (?Dr. Humphries) tomorrow to discuss results. ECHO nl EF severely dilated LA severe MAC MV mean gradient 3 mmHg c/w mild MS TNI < 0.02 Plan: EKG and telemetry TSH WNL Bradycardia resolved off Nadalol Serial BP checks. Increase Vasotec as needed. HGBA1c (no hx DM; borderline high glucose). Lipids well-controlled (on rosuvastatin). Exercise: pt has been doing home exercises, including walking, without chest pain or dyspnea. Neuro f/u F/u prior cardiac workup; plan on stress test if not done recently (multiple CAD risks). F/u Loop recorder results to r/o AF as factor in cerebral infarcts;
[2019-10-30] MEDS ORDERED: PT OWN MED DRAWER 7, Y5N ONE (08:50)
[2019-10-30] MEDS: CLOPIDOGREL BISULFATE 75 MG TABLET (FP) PO SCH (09:32)
[2019-10-30] MEDS: ASPIRIN COATED 81 MG TABLET.EC PO SCH (09:32)
[2019-10-30] MEDS: FAMOTIDINE 20 MG TABLET PO SCH (09:34)
[2019-10-30] MEDS ORDERED: NADOLOL 40 MG TABLET (FP) PO SCH (10:00)
--- NOTE | 2019-10-30 10:18 | CONSULT ---
Admitting History and Physical - Primary Care Physician PCP: Kyra Black - Admission History of Present Illness: Per EMR- Ms. Glover is a 64yF (b. [place]) w PMHx CVA (proximal/M2 branches of L MCA about 3 months ago; residual loss of right-side sensation, problems finding words) presenting w dizziness, nausea, mild L sided headache, and episode of unresponsiveness. Sudden onset dizziness (room spinning), nausea, mild L sided headache when pt stood up from chair to walk to bathroom At neuro baseline, AOx3, conversational, persistent R sided numbness and mild dysarthric speech. Had proximal/M2 branches of L MCA CVA on 08/17/19, given tPA, transferred to [facility], managed without surgery. Vertigo Hx CVA; left chronic infarct; multiple small infarcts noted on MRI Followed by neurology/cardiology Selected Entries 10/29/19 10/29/19 10/29/19 03:00 06:00 09:00 Diet Tolerated Supper Temperature 97.3 F L 98.4 F 97.6 F Pulse Rate 51 L 53 L 56 L Blood Pressure 100/43 L 105/50 L 123/61 10/29/19 10/29/19 10/29/19 13:57 18:00 20:34 Diet Tolerated Well Supper 75% Temperature 97.9 F 98.2 F Pulse Rate 64 57 L Blood Pressure 125/52 L 116/46 L 10/29/19 10/30/19 10/30/19 22:00 02:00 06:00 Diet Tolerated Supper Temperature 98.1 F 98.7 F 97.5 F L Pulse Rate 62 54 L 54 L Blood Pressure 122/50 L 104/49 L 110/48 L 10/30/19 08:31 Diet Tolerated Supper Temperature 97.6 F Pulse Rate 53 L Blood Pressure 140/51 L Laboratory Tests 10/28/19 10/28/19 08:35 08:35 WBC 7.0 COVID-19 (MOOSE) Not detected (-) Dysphagia screen, Soft diet/thin liquids History Source: Patient Limitations to Obtaining History: Clinical Condition - 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 Cardiovascular: Yes: CAD, HTN ...: No - Smoking History Smoking history: Never smoked Have you smoked in the past 12 months: No - Alcohol/Substance Use Hx Alcohol Use: No History - Admission Reason For Visit: VERTIGO/HISTORY OF CEREBROVASULAR ACCIDENT - Diagnostics X-ray: Report Reviewed CT Scan: Report Reviewed MRI: Report Reviewed - General Mental Status: Alert and Oriented, Awake and Alert, Able to Follow Commands Attention: Intact Ability to Follow Directions: Excellent Head/Neck Control: WFL - Hearing Hearing: Normal Speech Evaluation - Communication Primary Language: GEORGIAN Communication: Yes: Aphasia Oral Expression Ability: Yes: Mild Impairment - Speech Production Able to Make Needs Known: Yes: Mildly Impaired Intelligibility: Yes: WNL - Speech Characteristics Voice Loudness: Normal Voice Pitch: Yes: Normal Voice Phonatory-based Quality: Yes: Normal Speech Pattern: Normal Speech Clarity: < 100% Nasal Resonance: Normal Articulation: Yes: Precise Rate of Speech: Intact - Language/Auditory Comprehension Follows: Yes: 2 Stage Simple Commands Observation: Able to respond to yes/no queries: Yes, Yes/No Confusion: No, Comprehends Conversational Speech: Yes - Language/Verbal Expression Aphasia: Yes: Anomia, Apraxia Able to Respond to Simple Queries: Yes: Mildly Impaired Able to Communicate Wants and Needs: Yes: Mildly Impaired Functional Communication Status: Yes: Mildly Impaired - Memory/Perception terminal superintendent Memory: Yes: WNL Short Term Memory: Yes: WNL - Swallow Evaluation/Bedside Assessment Current Nutritional Intake: Regular, Thin Liquids Oral Secretions: Yes: WFL Dentition: Yes: Adequate Facial Symmetry at Rest: Symmetrical Facial Symmetry on Retraction: Symmetrical Sensation: Normal Against Resistance Opening: Normal Against Resistance Closing: Normal Lingual Movement: Symmetric Lingual Speed of Movement: Normal Lingual Movement Strgth Against Opposition: Normal Lingual Movement Characteristics: Normal Bolus Size: WFL Labial Seal: WFL Chewing: WFL Oral Prep Time: WFL A-P Transit: WFL Pocketing: None Timing of Swallow: WFL Coughing/Throat Clear: No Change in Voice: No Recommendations - Speech Evaluation, Impression/Plan Impression: Mild anomic aphasia/apraxia, recent baseline s/p CVA per pt before admission, receiving speech tx via [facility], per pt. Swallowing intact. Comprehension/cognition seems intact. - Disposition Discharge to: Home with Assist (Continue speech tx in home setting.) - Dysphagia Impressions/Plan Swallowing Skills: WFL Dysphagia Impressions: No Impairment *Silent aspiration: cannot be R/O at bedside Dysphagia Treatment Plan: Small Bites, Chin Tuck/Down, Safe Rate, 1/2 tsp. at a time, Elevate HOB during feed - Recommendations Diet Consistency: Regular Medication Administration: Whole with water Liquids: Thin Liquids
--- NOTE | 2019-10-30 11:30 | PN ---
Progress Note, Physician History of Present Illness: pt seen/ examined chart is reviewed Awake/ comfortable sitting in chair no complains offered denies cp/sob/abd pain/headache - Current Medication List Current Medications: Active Medications Acetaminophen (Tylenol -) 650 mg PO Q6H PRN PRN Reason: PAIN LEVEL 1-5 Last Admin: 10/29/19 21:19 Dose: 650 mg Documented by: Aspirin (Ecotrin -) 81 mg PO DAILY [facility] Last Admin: 10/30/19 09:32 Dose: 81 mg Documented by: Atorvastatin Calcium (Lipitor -) 40 mg PO HS [facility] Last Admin: 10/29/19 21:19 Dose: 40 mg Documented by: Clopidogrel Bisulfate (Plavix -) 75 mg PO DAILY [facility] Last Admin: 10/30/19 09:32 Dose: 75 mg Documented by: Famotidine (Pepcid -) 20 mg PO DAILY [facility] Last Admin: 10/30/19 09:34 Dose: Not Given Documented by: Meclizine HCl (Antivert -) 12.5 mg PO Q6H PRN PRN Reason: VERTIGO Nadolol (Corgard -) 40 mg PO DAILY [facility] Last Admin: 10/30/19 09:32 Dose: 40 mg Documented by: - Objective Vital Signs: Vital Signs Temperature 97.6 F 10/30/19 08:31 Pulse Rate 53 L 10/30/19 08:31 Respiratory Rate 18 10/30/19 08:31 Blood Pressure 140/51 L 10/30/19 08:31 O2 Sat by Pulse Oximetry (%) 99 10/30/19 08:45 Constitutional: Yes: No Distress, Calm Eyes: Yes: Conjunctiva Clear Neck: Yes: Supple Cardiovascular: Yes: Regular Rate and Rhythm Respiratory: Yes: CTA Bilaterally Gastrointestinal: Yes: Soft Edema: No Neurological: Yes: Alert Psychiatric: Yes: Alert Labs: CBC, BMP 10/28/19 08:35 10/28/19 08:35 Problem List - Problems (1) Paroxysmal A-fib Code(s): I48.0 - PAROXYSMAL ATRIAL FIBRILLATION (2) Peripheral vertigo Code(s): H81.399 - OTHER PERIPHERAL VERTIGO, UNSPECIFIED EAR Qualifiers: Laterality: unspecified laterality Qualified Code(s): H81.399 - Other peripheral vertigo, unspecified ear (3) TIA (transient ischemic attack) Code(s): G45.9 - TRANSIENT CEREBRAL ISCHEMIC ATTACK, UNSPECIFIED (4) Stroke Code(s): I63.9 - CEREBRAL INFARCTION, UNSPECIFIED Assessment/Plan Stable Continue present care Cardiology work up in progress Per cardiology note Stress test Event monitor from Her Cardiology office D/C Nadalol for bradycardia Start on Enalapril Will follow D/W RN also
[2019-10-30] MEDS: ENALAPRIL MALEATE 5 MG TABLET (FP) PO SCH (14:09)
--- NOTE | 2019-10-30 15:25 | ECHO ---
Name: IVON SIGALA Exam:Adult Echocardiogram Study Date: 10/30/2019 12:51 PM Age: 64 yrs Reason For Study: CVA Height: 55 in Weight: 135 lb BSA: 1.5 m2 MMode/2D Measurements & Calculations RVDd: 3.3 cm Ao root diam: 3.1 cm IVSd: 0.94 cm LA dimension: 4.3 cm LVIDd: 4.4 cm ACS: 1.9 cm LVIDs: 2.8 cm LVPWd: 0.96 cm EDV(Teich): 86.4 ml LVOT diam: 2.0 cm ESV(Teich): 28.8 ml LAV (MOD-bp): 89.0 ml TAPSE: 2.7 cm RV S Juan: 13.5 cm/sec Doppler Measurements & Calculations MV E max juan: 142.6 cm/sec MVA(VTI): 1.9 cm2 MV A max juan: 154.3 cm/sec MV V2 max: 145.2 cm/sec MV E/A: 0.92 MV max P.5 mmHg MV dec time: 0.35 sec MV V2 mean: 79.7 cm/sec MV mean P.0 mmHg MV V2 VTI: 53.6 cm MV P1/2t max juan: 135.1 cm/sec Ao V2 max: 186.0 cm/sec MV P1/2t: 107.2 msec Ao max P.8 mmHg Ao V2 mean: 132.5 cm/sec MVA(P1/2t): 2.1 cm2 Ao mean P.7 mmHg MV dec slope: 369.0 cm/sec2 Ao V2 VTI: 41.1 cm CHAD(I,D): 2.5 cm2 AI P1/2t: 481.4 msec CHAD(V,D): 2.4 cm2 AI max juan: 376.9 cm/sec LV V1 max P.3 mmHg AI max P.9 mmHg LV V1 mean P.7 mmHg LV V1 max: 144.0 cm/sec AI dec slope: 229.3 cm/sec2 LV V1 mean: 101.1 cm/sec LV V1 VTI: 33.8 cm MR max juan: 418.1 cm/sec SV(LVOT): 103.6 ml MR max P.9 mmHg TR max juan: 273.3 cm/sec PA V2 max: 89.6 cm/sec TR max P.9 mmHg PA max P.2 mmHg PA acc slope: 579.4 cm/sec2 PA acc time: 0.16 sec Med Peak E' Juan: 4.8 cm/sec PA pr(Accel): 7.7 mmHg Med E/e': 29.9 Lat Peak E' Juan: 4.7 cm/sec Lat E/e': 30.5 Pulm Sys Juan: 78.4 cm/sec Pulm Mckeon Juan: 48.3 cm/sec Pulm S/D: 1.6 Procedure Study Quality: Fair. Left Ventricle The left ventricle is normal in size. There is mild concentric left ventricular hypertrophy. The left ventricular ejection fraction is normal. Ejection Fraction = 55-60%. Right Ventricle The right ventricle is normal in size and function. Atria The left atrium is severely dilated. Right atrial size is normal. Mitral Valve There is severe mitral annular calcification. There is mild mitral regurgitation. Tricuspid Valve The tricuspid valve is normal. There is mild tricuspid regurgitation. Right ventricular systolic pres sure is normal. Right ventricular systolic pressure is elevated at 30-40mmHg. Aortic Valve There is moderate aortic sclerosis.;. Mild aortic regurgitation. Pulmonic Valve The pulmonic valve is not well seen, but is grossly normal. Great Vessels The aortic root is normal size. Pericardium/Pleura There is no pericardial effusion. Interpretation Summary LV: normal size,mild LVH,normal systolic function, EF 65% RV: Normasl LA: Severely dilated AV: Mildly calcified, mild AR MV: Severe annular calcification, mild MR; mPG 3 mmHg Mild TR with normal RVSP. Carlos Gonzalez 10/30/2019 03:25 PM
--- NOTE | 2019-10-30 18:16 | PN ---
Progress Note (short form) - Note Progress Note: 64 year old female , righ thanded, history of CAD, HTN, Stroke ( july 2019) She was given tpa at [facility] and was trasnferred for thrombectomy at [facility]. Patient has recovered and continue to have speech difficulty and righ tsided numbness. Patient came with feeling dizzy an dhas brief episode of loc. patient regained sensorium and feeling back to normal. Patient is feeling better and she is backto normal self No other focal neurological symptoms, dizziness has resolved . she was seen in presence of her son NEUROLOGICAL EXAMINATION Alert oriented x 2, speech is dysarthric and aphasic nystagmus is better pupils reactive moving all ext mild right arm and leg weakness( ol dstroke) ct head no acute findings mri of brain showed subacute on chronic infarct Assessment/Plan 64 year old female , righ thanded, history of CAD, HTN, Stroke ( july 2019) came with syncopal episode and vertigo sensation. - ? syncope - vertigo , likley to be BPPV vs tia , - mri findings are suggestive of resolving stroke Plan - continue plavix for now - her symptoms are resolved,outpatient follow up Thanking you so much Constantino Lr MD
[2019-10-30] MEDS: ACETAMINOPHEN 325 MG TABLET (FP) PO PRN (20:06)
[2019-10-30] MEDS: ATORVASTATIN CA 40 MG TABLET (FP) PO SCH (22:02)
[2019-10-31] MEDS: CLOPIDOGREL BISULFATE 75 MG TABLET (FP) PO SCH (09:13)
[2019-10-31] MEDS: ASPIRIN COATED 81 MG TABLET.EC PO SCH (09:13)
[2019-10-31] MEDS: ENALAPRIL MALEATE 5 MG TABLET (FP) PO SCH (09:13)
[2019-10-31] MEDS: FAMOTIDINE 20 MG TABLET PO SCH (09:16)
--- NOTE | 2019-10-31 10:42 | PN ---
Progress Note, HOSTESS - Note Progress Note: Selected Entries 10/31/19 10/31/19 10/31/19 01:38 06:00 09:25 Breakfast Diet Tolerated Temperature 97.8 F 97.0 F L 97.9 F Pulse Rate 51 L 60 55 L Blood Pressure 111/47 L 127/49 L 125/51 L 10/31/19 09:48 Breakfast 100% Diet Tolerated Well Temperature Pulse Rate Blood Pressure Laboratory Tests 10/28/19 08:35 WBC 7.0 No signs/symptoms of Dysphagia observed or reported Anopmic Aphasia For continued speechy/language txs [facility]
[2019-10-31 13:14] VITALS: BP 145/80; PULSE 61; TEMP 98.9
--- NOTE | 2019-10-31 13:41 | PN ---
Progress Note, Physician Chief Complaint: Pt A&Ox3; asymptomatic History of Present Illness: Ms. Glover is a 64yF (b. [place]) w PMHx CVA (proximal/M2 branches of L MCA about 3 months ago; residual loss of right-side sensation, problems finding words) presenting w dizziness, nausea, mild L sided headache, and episode of unresponsiveness. Sudden onset dizziness (room spinning), nausea, mild L sided headache when pt stood up from chair to walk to bathroom at 7pm last night. Didn't take any meds for symptoms, only propped up legs on bed. Son also noted few-second episode of unresponsiveness this morning that self-resolved. Pt now at neuro baseline, AOx3, conversational, persistent R sided numbness and mild dysarthric speech. Had proximal/M2 branches of L MCA CVA on 08/17/19, given tPA, transferred to [facility], managed without surgery. Denies fever, cough, vomiting, chest/ABD pain, SOB, urinary/bowel mvmt changes, extremity weakness. Neurologist - Dr. Vela - Current Medication List Current Medications: Active Medications Acetaminophen (Tylenol -) 650 mg PO Q6H PRN PRN Reason: PAIN LEVEL 1-5 Last Admin: 10/30/19 20:06 Dose: 650 mg Documented by: Aspirin (Ecotrin -) 81 mg PO DAILY [facility] Last Admin: 10/31/19 09:13 Dose: 81 mg Documented by: Atorvastatin Calcium (Lipitor -) 40 mg PO HS [facility] Last Admin: 10/30/19 22:02 Dose: 40 mg Documented by: Clopidogrel Bisulfate (Plavix -) 75 mg PO DAILY [facility] Last Admin: 10/31/19 09:13 Dose: 75 mg Documented by: Enalapril Maleate (Vasotec -) 5 mg PO DAILY [facility] Last Admin: 10/31/19 09:13 Dose: 5 mg Documented by: Famotidine (Pepcid -) 20 mg PO DAILY [facility] Last Admin: 10/31/19 09:16 Dose: Not Given Documented by: Meclizine HCl (Antivert -) 12.5 mg PO Q6H PRN PRN Reason: VERTIGO - Objective Vital Signs: Vital Signs Temperature 98.9 F 10/31/19 13:13 Pulse Rate 61 10/31/19 13:13 Respiratory Rate 16 10/31/19 13:13 Blood Pressure 145/80 10/31/19 13:13 O2 Sat by Pulse Oximetry (%) 98 10/31/19 10:00 Constitutional: Yes: Calm Eyes: Yes: WNL HENT: Yes: WNL Neck: Yes: Supple Cardiovascular: Yes: Regular Rate and Rhythm, S1, S2 Respiratory: Yes: Regular Gastrointestinal: Yes: Soft ...Rectal Exam: Yes: Deferred Genitourinary: No: Anuria Breast(s): Yes: WNL Musculoskeletal: Yes: Muscle Weakness Extremities: Yes: Cool Edema: No Peripheral Pulses WNL: Yes Integumentary: Yes: WNL Neurological: Yes: Alert, Oriented, Weakness Psychiatric: Yes: Alert, Oriented Labs: CBC, BMP 10/28/19 08:35 10/28/19 08:35 - ....Imaging Chest X-ray: Image Reviewed Ultrasound: Report Reviewed EKG: Image Reviewed Assessment/Plan Vertigo Hx CVA; left chronic infarct; multiple small infarcts noted on MRI HTN HLD Sinus bradycardia ECHO: normal LVEF; severely dilated LA; mild TR, MR, AR. Plan: As discussed with Dr. Louie, who spoke with pt's PMD, pt's one-month of loop recording disclosed sinus rhythm, no arrhythymias. On ASA and Plavix per neurology. From a cardiac perspective, pt may be followed as an outpatient.
--- NOTE | 2019-10-31 14:07 | DS ---
Physical Examination Vital Signs: Vital Signs Temperature 98.9 F 10/31/19 13:13 Pulse Rate 61 10/31/19 13:13 Respiratory Rate 16 10/31/19 13:13 Blood Pressure 145/80 10/31/19 13:13 O2 Sat by Pulse Oximetry (%) 98 10/31/19 10:00 Constitutional: Yes: No Distress, Calm Cardiovascular: Yes: Regular Rate and Rhythm Respiratory: Yes: CTA Bilaterally Gastrointestinal: Yes: Normal Bowel Sounds, Soft. No: Tenderness Edema: No Neurological: Yes: Alert, Oriented, Aphasia (expressive aphasia). No: Facial Droop, Weakness ...Motor Strength: WNL Labs: CBC, BMP 10/28/19 08:35 10/28/19 08:35 Discharge Summary Problems reviewed: Yes Reason For Visit: VERTIGO/HISTORY OF CEREBROVASULAR ACCIDENT Current Active Problems Paroxysmal A-fib (Acute) Peripheral vertigo (Acute) TIA (transient ischemic attack) (Acute) Hospital Course: CHIEF COMPLAINT: Vertigo PCP: Dr. Evans HISTORY OF PRESENT ILLNESS: 64yo R-handed F with h/o CAD, HTN, and prior CVA (07/2019) without residual post TPA who presented today with a few minutes of vertigo. Patient was originally accompanied by her family member who reported she was reported unres ponsive for several seconds. She regained sensorium and developed nausea without vomiting. Patient noted to have L-sided unilateral frontal headache which lasted for a few seconds. Overall patient is asymptomatic at time of exam. She denotes some generalized weakness, but denies any fever/chills, SOB, CP, palpitations, vertigo, numbness, motor difficulties, dyarthria, abdominal pain, dysuria, poly uria. HOSPITAL COURSE MRU BRAIN - showed old infarct along with several small foci located in the left frontoparietal region Echo -- normal EF, LA dilation Carotid doppler-- negative for stenosis She was admitted in telemetry-- uneventful She was evaluated by Cardiology and Neurology Nadolol dc due to bradycardia which may have exacerbated her dizziness Stable on Antivert as needed She was also evaluated by speech therapy as well Advised to follow up with Cardiology and PMD in 2weeks Spoke with son today Condition: Good - Instructions Diet, Activity, Other Instructions: stop nadolol follow up with DR Evans in 2 weeks Referrals: Scar Evans MD [Primary Care Provider] - - Home Medications Comprehensive Discharge Medication List: Ambulatory Orders Cholecalciferol (Vitamin D3) [Vitamin D3] 1,000 unit PO DAILY 01/02/15 Famotidine [Pepcid -] 20 mg PO DAILY 10/28/19 Aspirin Coated [Ecotrin -] 81 mg PO DAILY #30 tablet.ec 10/31/19 Atorvastatin Ca [Lipitor] 40 mg PO HS #30 tablet 10/31/19 Clopidogrel Bisulfate [Plavix -] 75 mg PO DAILY #30 tablet 10/31/19 Enalapril Maleate [Vasotec -] 5 mg PO DAILY #30 tablet 10/31/19 Meclizine HCl [Antivert -] 12.5 mg PO Q6H PRN #30 tablet 10/31/19
--- NOTE | 2019-10-31 22:47 | PN ---
Progress Note (short form) - Note Progress Note: 64 year old female , righ thanded, history of CAD, HTN, Stroke ( july 2019) She was given tpa at [facility] and was trasnferred for thrombectomy at [facility]. Patient has recovered and continue to have speech difficulty and righ tsided numbness. Patient came with feeling dizzy an dhas brief episode of loc. patient regained sensorium and feeling back to normal. Patient is feeling better and she is backto normal self No new complain , being sent home NEUROLOGICAL EXAMINATION Alert oriented x 2, speech is dysarthric and aphasic nystagmus is better pupils reactive moving all ext mild right arm and leg weakness( ol dstroke) ct head no acute findings mri of brain showed subacute on chronic infarct Assessment/Plan 64 year old female , righ thanded, history of CAD, HTN, Stroke ( july 2019) came with syncopal episode and vertigo sensation. - ? syncope - vertigo , likley to be BPPV vs tia , - mri findings are suggestive of resolving stroke Plan - her symptoms are resolved,outpatient follow up Thanking you so much Constantino Lr MD
== END 2019-10-31 16:01 | disposition home or self-care (01) ==
LOC: JER 07:29 → JERBED 11:20 → J4S 21:19
PROVIDERS: ADMIT Internal Medicine; ATTEND Internal Medicine
PROC: 3E033NZ Introduction of Analgesics, Hypnotics, Sedatives into Peripheral Vein, Percutaneous Approach (ICD-10-PCS; principal; 2019-10-28)
PROC: 3E0337Z Introduction of Electrolytic and Water Balance Substance into Peripheral Vein, Percutaneous Approach (ICD-10-PCS; 2019-10-28)
DX: H81.399 Other peripheral vertigo, unspecified ear (principal); G45.9 Transient cerebral ischemic attack, unspecified; I25.10 Atherosclerotic heart disease of native coronary artery without angina pectoris; I10 Essential (primary) hypertension; R47.01 Aphasia; I48.0 Paroxysmal atrial fibrillation; R01.1 Cardiac murmur, unspecified; M62.81 Muscle weakness (generalized); R48.2 Apraxia; Z86.73 Personal history of transient ischemic attack (TIA), and cerebral infarction without residual deficits; Z88.0 Allergy status to penicillin
CPT/HCPCS: 36415; 70450-TC; 70551-TC; 71045-TC-FY; 80053; 80061; 82550; 82607; 83036; 83721; 84443; 84484; 85025; 93005; 93010; 93306-TC; 93880-TC; 96361; 96374; 97116-GP; 97161-GP; 99285-25; G0378; J0131; U0003